=== PATIENT | female | born 1960 | race Caucasian/White ===

== ENCOUNTER 2016-08-02 15:00 | Emergency (ER) | payer MEDICAID ==
[~2016-08-02] VITALS: Ht 167.6 cm; Wt 80.7 kg
[~2016-08-02 15:00] MED LIST: RANITIDINE150 MG PO; VENLAFAXINE150 MG PO
[2016-08-02 16:53] VITALS: BP 135/94
== END 2016-08-02 16:53 | disposition home or self-care (01) ==
LOC: ED 15:00
DX: L02.416 Cutaneous abscess of left lower limb (principal)
CPT/HCPCS: J2001

== ENCOUNTER 2016-08-04 15:43 | Emergency (ER) | payer MEDICAID ==
[2016-08-04 16:00] VITALS: BP 124/81
== END 2016-08-04 18:08 | disposition home or self-care (01) ==
LOC: ED 15:43
DX: Z48.00 Encounter for change or removal of nonsurgical wound dressing (principal)
CPT/HCPCS: J2001

== ENCOUNTER 2016-08-06 11:41 | Emergency (ER) | payer MEDICAID ==
[~2016-08-06] VITALS: Ht 160 cm; Wt 81.4 kg
[2016-08-06 11:46] VITALS: BP 118/80
== END 2016-08-06 12:37 | disposition home or self-care (01) ==
LOC: ED 11:41
DX: Z48.01 Encounter for change or removal of surgical wound dressing (principal)